=== PATIENT | male | born 1990 | race Two or more races ===

== ENCOUNTER → 2025-04-19 | Outpatient (CLI) | payer MEDICAID, SELFPAY ==
--- NOTE | 2025-04-19 12:59 | XR_ITS ---
Examination: Left ankle 2 views Technique one AP lateral left ankle 2 views Date and time: April 19, 2025 1309 hours INDICATIONS: Left ankle injury beginning 2 days ago FINDINGS: No fracture or dislocation Small plantar posterior bony calcaneal spurs IMPRESSION: No fracture or dislocation
== END | disposition home or self-care (01) ==
LOC: CDIM 12:49
PROVIDERS: PCP Nurse Practitioner Family; Referring Provider Nurse Practitioner Family; Visit Provider Nurse Practitioner Family
DX: S99.912A Unspecified injury of left ankle, initial encounter (principal); X58.XXXA Exposure to other specified factors, initial encounter
CPT/HCPCS: 73600